=== PATIENT | male | born 1995 | race Caucasian/White ===

== ENCOUNTER 2023-08-02 11:31 | Emergency (ER) | payer BC ==
[2023-08-02 11:34] VITALS: BMI 25.7
[2023-08-02] MEDS ORDERED: ACETAMINOPHEN 500 MG TABLET (FP) PO ONE (12:07)
[2023-08-02] MEDS ORDERED: IBUPROFEN 600 MG TABLET (FP) PO ONE ×2 (12:07→12:52)
[2023-08-02] MEDS ORDERED: ACETAMINOPHEN 500 MG TABLET (FP) ONE (12:52)
[2023-08-02 16:11] VITALS: BP 110/77; PULSE 86; RESP 19; TEMP 97.9
== END 2023-08-02 16:12 | disposition home or self-care (01) ==
LOC: JER 11:31
DX: S02.31XA Fracture of orbital floor, right side, initial encounter for closed fracture (principal); Y04.0XXA Assault by unarmed brawl or fight, initial encounter
CPT/HCPCS: 70486-TC; 99284-25